=== PATIENT | female | born 1950 | race American Indian/Alaskan Native ===

== ENCOUNTER 2018-08-03 10:10 | Outpatient (CLI) | payer MEDICARE ==
[2018-08-03 11:24] LABS: Blood Urea Nitrogen 12 mg/dL (7-17)
--- NOTE | 2018-08-05 02:29 | Cat Scan Report ---
PROCEDURE: CT UPPER EXTREM LT WO CON HISTORY: PAIN FINDINGS: Unenhanced CT of the left shoulder was performed. These images demonstrate no fracture or destructive lesion of the left shoulder. The glenohumeral and acromioclavicular joints are normally located. There is moderate glenohumeral osteoarthritis. IMPRESSION: No fracture is seen in the left shoulder This document is electronically signed by Savage Freeman MD., August 05 2018 02:27:05 AM ET
--- NOTE | 2018-08-05 02:48 | Cat Scan Report ---
PROCEDURE: CT NECK WO CON HISTORY: PAIN FINDINGS: Unenhanced CT of the neck was performed and data was reformatted in the sagittal and avendano l planes. No fracture is seen in the cervical spine. The C1-C2 articulation is normally aligned. At C2 C3 there are no posterior disc abnormalities. At C3-C4, there is a minimal posterior disc bulge which does not result in canal stenosis. There is m ild left foraminal narrowing there is no right foraminal narrowing. There is no evidence of nerve candice t impingement. There is left-sided facet hypertrophy. At C4-C5 there are no posterior disc abnormalities. There is bilateral facet hypertrophy. There is bi lateral neural foraminal narrowing without nerve root impingement. At C5-C6 there is a small posterior disc bulge which mildly effaces the anterior margin of the thecal sac but does not result in canal stenosis. There is mild bilateral neural foraminal narrowing withou t nerve root impingement. At C6-C7 there is mild endplate remodeling. There is no evidence of canal stenosis or nerve root impi ngement. At C7-T1 there are no posterior disc abnormalities. The pulmonary apices appear clear. There is atherosclerosis of the cervical arterial vasculature. There is a subpleural nodule in the right upper lobe, image 176, 0.3 cm. The thyroid gland is unremarkable. The larynx is within normal limits. There is a normal epiglottis. There are bilateral maxillary polyp versus mucous retention cysts. There is complete opacification of the left sphenoid sinus. There are air-fluid levels within both maxillary sinuses consistent with ac soy sinusitis. The pulmonary apices appear clear. IMPRESSION: Air-fluid levels in both maxillary sinuses consistent with sinusitis This document is electronically signed by Savage Freeman MD., August 05 2018 02:46:02 AM ET
== END 2018-08-03 10:11 | disposition home or self-care (01) ==
LOC: CT 10:10
PROVIDERS: ATTEND General Practice
DX: M19.012 Primary osteoarthritis, left shoulder (principal); M50.21 Other cervical disc displacement, high cervical region
CPT/HCPCS: 36415; 70490; 82565; 84520